=== PATIENT | female | born 1980 | race Caucasian/White ===

== ENCOUNTER 2018-01-08 16:24 | Emergency (ER) | payer OTHER, SELFPAY ==
[2018-01-08 16:45] LABS: Bilirubin Small (Negative); Blood, Urine Small (Negative); Glucose, Urine (Dipstick) Negative (Negative); Leukocyte Negative (Negative); Nitrite Negative (Negative); Protein, Urine (Dipstick) Negative (Neg-Trace); Urobilinogen 0.2 mg/dL (0.2-1.0)
[2018-01-08 16:48] LABS: Clarity Clear (Clear)
[2018-01-08 16:52] LABS: Bacteria/HPF Rare-Few HPF (None Seen); Hyaline Casts/LPF NONE SEEN LPF (0-3 Hyaline); RBC/HPF 0-3 HPF (0-3); Squamous Epithelial 0-3 HPF (0-3); WBC/HPF 0-3 HPF (0-3)
[2018-01-08 17:00] LABS: #Basophils 0.1 thou/uL (0.0-0.2); #Eosinphils 0.1 thou/uL (0.0-0.7); #Lymphocytes 3.6 thou/uL (1.20-3.40); #Monocytes 0.7 thou/uL (0.11-0.59); #Neutrophils 8.2 thou/uL (1.40-6.50); %Basophils 0.9 % (0.0-1.0); %Eosinophils 1.1 % (0.0-10.0); %Lymphocytes 28.5 % (21.0-51.0); %Monocytes 5.4 % (0.0-10.0); %Neutrophils 64.1 % (42.0-75.0); Hemoglobin 11.9 g/dL (12.0-16.0); Mean Corpuscular HGB CONC 32.8 g/dL (32.0-36.0); Mean Corpuscular Hemoglobin 26.5 pg (27.0-31.0); Mean Corpuscular Volume 80.9 fl (81.0-99.0); Mean Platelet Volume 8.1 fL (7.4-10.4); Platelet Count 362 thou/uL (130-400); RBC Distribution Width 12.9 % (11.5-14.5); Red Blood Cell (RBC) Count 4.49 mill/uL (4.20-5.40); White Blood Cell (WBC) Count 12.8 thou/uL (4.8-10.8)
[2018-01-08 17:20] LABS: ALT (SGPT) 20 U/L (8-55); AST (SGOT) 12 U/L (5-34); Albumin 4.4 g/dL (3.5-5.0); Alkaline Phosphatase 78 U/L (40-150); Anion Gap 18 mmol/L (10-20); BUN (Urea Nitrogen) 16 mg/dL (7.0-18.7); Bilirubin, Total 0.4 mg/dL (0.2-1.2); Calc. Creatinine Clearance 0 mL/min (70-130); Calcium 10.1 mg/dL (7.8-10.44); Carbon Dioxide 19 mmol/L (22-29); Chloride 106 mmol/L (98-107); Estimated GFR-MDRD 83; Globulin 3.7 g/dL (2.4-3.5); Glucose 102 mg/dL (70-105); Potassium 3.8 mmol/L (3.5-5.1); Protein, Total 8.1 g/dL (6.0-8.3); Sodium 139 mmol/L (136-145)
[2018-01-08 17:23] LABS: BHCG - Serum Negative (NEGATIVE); Pregs Control Background? CLEAR/WHITE (CLR/WHITE); Pregs Control Bar Appear? YES (CONTROL BAR)
[2018-01-08] MEDS ORDERED: Ketorolac Tromethamine 30 MG/ML VIAL ONE (17:38)
[2018-01-08] MEDS ORDERED: Ondansetron HCl/PF 4 MG/2 ML Vial ONE (17:38)
[2018-01-08 17:45] LABS: Pregnancy Test - Urine (BHCG) Negative (Negative); Pregu Control Background? CLEAR/WHITE (CLR/WHITE); Pregu Control Bar Appear? YES (CONTROL BAR)
--- NOTE | 2018-01-08 19:08 | CT ---
NONCONTRAST CT ABDOMEN AND PELVIS: 01/08/18 HISTORY: Right sided abdominal pain that started this morning. Patient states that the pain is in the region o f the right flank. History of prior kidney stones. FINDINGS: There is moderate right hydronephrosis and hydroureter with an approximately 5 mm calculus seen near the region of the right UVJ. The urinary bladder is completely decompressed and not well evaluated. There are two nonobstructing left renal calculi present, largest measuring 5 mm. No left ureteral adriano culus is present. Kidneys have a lobulated appearance bilaterally which may be related to lobulation. There is a subcentimeter too small to characterize hypodense lesion inferior pole left kidney. Hypodense lesion was seen in this region on prior study in 2015. The liver, spleen, pancreas, bilateral adrenal glands, and uterus demonstrate a grossly normal nonenh anced CT appearance. There are two low density structures seen associated with the left ovary, larges t measuring 3.1 cm and may represent left ovarian cysts but are difficult to further characterize on this nonenhanced CT scan exam. The appendix is not well visualized on this exam, but there are no secondary CT findings to suggest a ppendicitis. IMPRESSION: 1. Partially obstructing right UVJ calculus measuring 5 mm resulting in moderate right hydroneph rosis and hydroureter. 2. Nonobstructing left renal calculi. 3. Hypodense lesions left adnexa which may represent left ovarian cysts but are difficult to marie quately characterize on this exam. Above findings discussed with Dr. Vargas in the Emergency Department on 01/08/18 at 1812 hours. POS: MEGHAN
[2018-01-08] MEDS ORDERED: HYDROcodone/Acetaminophen 5/325 mg Tablet ONE (19:17)
== END 2018-01-08 21:27 | disposition home or self-care (01) ==
LOC: ERS 16:24
DX: N13.2 Hydronephrosis with renal and ureteral calculous obstruction (principal); I10 Essential (primary) hypertension; F32.9 Major depressive disorder, single episode, unspecified; Z87.891 Personal history of nicotine dependence; Z79.899 Other long term (current) drug therapy
CPT/HCPCS: 36415; 74176; 80053; 81003; 81015; 81025; 84703; 85025; 96361; 96374; 96375; J1885; J2405

== ENCOUNTER 2018-04-29 08:47 | Outpatient (CLI) | payer OTHER | END 2018-04-29 08:48 | disposition home or self-care (01) | LOC: BICULT 08:47 | PROVIDERS: ATTEND Family Medicine | DX: N93.9 Abnormal uterine and vaginal bleeding, unspecified (principal); R93.8 Abnormal findings on diagnostic imaging of other specified body structures | CPT/HCPCS: 76856 ==

== ENCOUNTER 2018-05-19 08:07 | Emergency (ER) | payer OTHER ==
[2018-05-19] MEDS ORDERED: HYDROcodone/Acetaminophen 5/325 mg Tablet ONE (08:33)
[2018-05-19 08:57] LABS: Bilirubin Unable to Interpret (Negative); Blood, Urine Unable to Interpret (Negative); Clarity Cloudy (Clear); Glucose, Urine (Dipstick) Unable to Interpret mg/dL (Negative); Leukocyte Unable to Interpret (Negative); Nitrite Unable to Interpret (Negative); Protein, Urine (Dipstick) Unable to Interpret mg/dL (Neg-Trace); Urobilinogen UNABLE TO INTERPRET mg/dL (0.2-1.0)
[2018-05-19 08:58] LABS: Specific Gravity, Urine 1.019 (1.002-1.036)
[2018-05-19 08:59] LABS: Pregnancy Test - Urine (BHCG) Negative (Negative); Pregu Control Background? CLEAR/WHITE (CLR/WHITE); Pregu Control Bar Appear? YES (CONTROL BAR)
[2018-05-19 09:00] LABS: Specific Gravity 1.019 (1.002-1.036)
[2018-05-19 09:10] LABS: pH, Urine 5.1 (5.0-9.0)
[2018-05-19 09:12] LABS: Bacteria/HPF Rare-Few HPF (None Seen); RBC/HPF GREATER THAN 50-TNTC HPF (0-3)
[2018-05-19 09:13] LABS: Hyaline Casts/LPF 0-3 HYALINE CAST LPF (0-3 Hyaline)
[2018-05-19 09:25] LABS: #Basophils 0.1 thou/uL (0.0-0.2); #Eosinphils 0.2 thou/uL (0.0-0.7); #Lymphocytes 4.2 thou/uL (1.20-3.40); #Monocytes 0.6 thou/uL (0.11-0.59); %Basophils 0.8 % (0.0-1.0); %Eosinophils 1.7 % (0.0-10.0); %Lymphocytes 29.6 % (21.0-51.0); %Monocytes 4.5 % (0.0-10.0); %Neutrophils 63.4 % (42.0-75.0); Hemoglobin 9.6 g/dL (12.0-16.0); Mean Corpuscular HGB CONC 32.6 g/dL (32.0-36.0); Mean Corpuscular Hemoglobin 23.9 pg (27.0-31.0); Mean Corpuscular Volume 73.4 fL (78.0-98.0); Mean Platelet Volume 9.2 fL (7.4-10.4); Platelet Count 288 thou/uL (130-400); RBC Distribution Width 17.4 % (11.5-14.5); Red Blood Cell (RBC) Count 4.02 mill/uL (4.20-5.40); White Blood Cell (WBC) Count 14.2 thou/uL (4.8-10.8)
[2018-05-19 09:42] LABS: Hypochromia SLIGHT = 6-15 cells (100X) (0-5/hpf); MDiff Complete? YES; Microcytosis SLIGHT = 6-15 cells (100X) (0-5/hpf); PLT Morphology Comment Appears Adequate; Polychromasia SLIGHT = 2-3 cells (100X) (0-2/hpf)
[2018-05-19] MEDS ORDERED: medroxyPROGESTERone Acetate 5 MG TAB PO SCH (10:00)
--- NOTE | 2018-05-19 10:07 | ULT ---
PELVIC ULTRASOUND: HISTORY: Uterine bleeding. Heavy vaginal bleeding. The patient has been diagnosed with fibroids in the past. COMPARISON: 04/29/2018 TECHNIQUE: Transabdominal, endovaginal imaging of the pelvis is performed. The ovaries are interrogated with Gr ay-scale, color-flow, Doppler imaging, and spectral wave-form analysis. FINDINGS: Redemonstration of a single solid uterine leiomyoma in the anterior uterine fundus, measuring 3.1 x 4 x 3.4 cm. Previously, this fibroid was demonstrated to be 3.1 x 2.4 x 2.9 cm. Additional uterine l eiomyomas are not appreciated. Overall, the uterus measures 5.8 x 9.5 x 6.1 cm. Limited evaluation of the endometrium. The visualized endometrium has a diameter of 0.8 cm in the longitudinal plane an d 2.3 x 1.3 cm in the transverse plane. The right ovary is not appreciated. There is a hypoechoic focus in the left ovary, measuring 2.8 x 4.1 x 3.9 cm, which may represent inte rval development of a slightly complex cyst. Overall, the left ovary measures 3 x 4.2 x 4.8 cm. There is no free fluid. OVARIAN DOPPLER: There is vascular flow to the left ovary. IMPRESSION: 1. Redemonstration of a uterine leiomyoma. 2. Interval development of anechoic flow to the left ovary, likely representing a complex cyst. Fol low-up ultrasound in six to eight weeks is recommended to ensure resolution. POS: MEGHAN
== END 2018-05-19 13:01 | disposition home or self-care (01) ==
LOC: ERS 08:07
DX: N93.8 Other specified abnormal uterine and vaginal bleeding (principal); I10 Essential (primary) hypertension; F32.9 Major depressive disorder, single episode, unspecified; Z87.891 Personal history of nicotine dependence; Z79.899 Other long term (current) drug therapy
CPT/HCPCS: 76856; 81003; 81015; 81025; 85025; 86850; 86900; 86901

== ENCOUNTER 2018-05-26 16:24 | Emergency (ER) | payer OTHER ==
[2018-05-26 16:58] LABS: #Basophils 0.1 thou/uL (0.0-0.2); #Eosinphils 0.1 thou/uL (0.0-0.7); #Lymphocytes 3.6 thou/uL (1.20-3.40); #Monocytes 0.6 thou/uL (0.11-0.59); #Neutrophils 10.6 thou/uL (1.40-6.50); %Basophils 0.9 % (0.0-1.0); %Eosinophils 0.8 % (0.0-10.0); %Lymphocytes 23.8 % (21.0-51.0); %Monocytes 4.2 % (0.0-10.0); %Neutrophils 70.3 % (42.0-75.0); Hemoglobin 8.4 g/dL (12.0-16.0); Mean Corpuscular HGB CONC 32.2 g/dL (32.0-36.0); Mean Corpuscular Hemoglobin 24.3 pg (27.0-31.0); Mean Corpuscular Volume 75.3 fL (78.0-98.0); Platelet Count 469 thou/uL (130-400); RBC Distribution Width 18.3 % (11.5-14.5); Red Blood Cell (RBC) Count 3.44 mill/uL (4.20-5.40); White Blood Cell (WBC) Count 15.1 thou/uL (4.8-10.8)
[2018-05-26 17:19] LABS: Bilirubin Negative (Negative); Blood, Urine Moderate (Negative); Clarity CLOUDY (Clear); Glucose, Urine (Dipstick) Negative (Negative); Leukocyte Negative (Negative); Nitrite Negative (Negative); Protein, Urine (Dipstick) Negative (Neg-Trace); Specific Gravity, Urine 1.005 (1.002-1.036); Urobilinogen 0.2 mg/dL (0.2-1.0)
[2018-05-26 17:23] LABS: Bacteria/HPF None Seen HPF (None Seen); Hyaline Casts/LPF 0-3 HYALINE CAST LPF (0-3 Hyaline); Pathc Cast-AUWi Flag 0.29 (0-2.49); Squamous Epithelial None Seen HPF (0-3); WBC/HPF 0-3 HPF (0-3)
== END 2018-05-26 22:59 | disposition home or self-care (01) ==
LOC: ERS 16:24
DX: N93.9 Abnormal uterine and vaginal bleeding, unspecified (principal); D64.9 Anemia, unspecified; F32.9 Major depressive disorder, single episode, unspecified; Z87.891 Personal history of nicotine dependence; Z79.899 Other long term (current) drug therapy
CPT/HCPCS: 36415; 36430; 81003; 81015; 84702; 85025; 86850; 86900; 86901; 96360; P9016

== ENCOUNTER 2018-06-01 02:58 | Observation (INO) | payer OTHER ==
[2018-06-01] MEDS ORDERED: Morphine 4 MG/ML VIAL ONE ×2 (03:27→05:19)
[2018-06-01 03:45] LABS: #Basophils 0.1 thou/uL (0.0-0.2); #Eosinphils 0.3 thou/uL (0.0-0.7); #Lymphocytes 5.6 thou/uL (1.20-3.40); #Monocytes 0.8 thou/uL (0.11-0.59); #Neutrophils 10.1 thou/uL (1.40-6.50); %Basophils 0.8 % (0.0-1.0); %Eosinophils 1.5 % (0.0-10.0); %Lymphocytes 33.3 % (21.0-51.0); %Monocytes 4.9 % (0.0-10.0); %Neutrophils 59.4 % (42.0-75.0); Hemoglobin 9.2 g/dL (12.0-16.0); Mean Corpuscular HGB CONC 34.6 g/dL (32.0-36.0); Mean Corpuscular Hemoglobin 26.1 pg (27.0-31.0); Mean Corpuscular Volume 75.5 fL (78.0-98.0); Mean Platelet Volume 8.8 fL (7.4-10.4); Platelet Count 383 thou/uL (130-400); RBC Distribution Width 17.8 % (11.5-14.5); Red Blood Cell (RBC) Count 3.52 mill/uL (4.20-5.40); White Blood Cell (WBC) Count 16.9 thou/uL (4.8-10.8)
[2018-06-01 03:49] LABS: BHCG - Serum Negative (NEGATIVE); Pregs Control Background? CLEAR/WHITE (CLR/WHITE); Pregs Control Bar Appear? YES (CONTROL BAR)
[2018-06-01 03:58] LABS: ALT (SGPT) 20 U/L (8-55); AST (SGOT) 13 U/L (5-34); Albumin 4.1 g/dL (3.5-5.0); Alkaline Phosphatase 64 U/L (40-150); Anion Gap 17 mmol/L (10-20); BUN (Urea Nitrogen) 20 mg/dL (7.0-18.7); Bilirubin, Total 0.2 mg/dL (0.2-1.2); Calc. Creatinine Clearance 0 mL/min (70-130); Calcium 9.5 mg/dL (7.8-10.44); Carbon Dioxide 17 mmol/L (22-29); Chloride 107 mmol/L (98-107); Estimated GFR-MDRD 80; Globulin 3.2 g/dL (2.4-3.5); Glucose 127 mg/dL (70-105); Lipase 54 U/L (8-78); Potassium 3.7 mmol/L (3.5-5.1); Protein, Total 7.3 g/dL (6.0-8.3); Sodium 137 mmol/L (136-145)
[2018-06-01 04:29] LABS: Bilirubin Negative (Negative); Blood, Urine Large (Negative); Clarity CLOUDY (Clear); Glucose, Urine (Dipstick) Negative (Negative); Leukocyte Trace (Negative); Nitrite Negative (Negative); Protein, Urine (Dipstick) Trace mg/dL (Neg-Trace); Specific Gravity, Urine 1.025 (1.002-1.036)
[2018-06-01 04:30] LABS: Bacteria/HPF None Seen HPF (None Seen); Hyaline Casts/LPF 0-3 HYALINE CAST LPF (0-3 Hyaline); Pathc Cast-AUWi Flag 0.43 (0-2.49); RBC/HPF GREATER THAN 50-TNTC HPF (0-3); Squamous Epithelial 0-3 HPF (0-3); WBC/HPF 0-3 HPF (0-3)
--- NOTE | 2018-06-01 06:55 | HP ---
DATE OF ADMISSION: 06/01/2018 ADMITTING PHYSICIAN: Nathan Zhao M.D. CHIEF COMPLAINT: Heavy vaginal bleeding, shortness of breath. HISTORY OF PRESENT ILLNESS: Ms. Robles is a 37-year-old white with a reported last normal menstrual period of 04/22/2018 who presents to the ER early this morning complaining of heavy vaginal bleeding x6 pads now with shortness of breath. She has apparently had 3 previous visits to the ER over the last 4-6 weeks. She was known to have bleeding and fibroids and reportedly has an appointment with Dr. Kathy Pham on 06/08/2018. She reports that she had a normal Pap smear last month with Dr. [facility]. PAST OBSTETRICAL HISTORY: Includes 3 spontaneous vaginal deliveries at term. PAST MEDICAL HISTORY: Hypertension. CURRENT MEDICATIONS: Amlodipine 10 mg QD. PAST SURGICAL HISTORY: Tubal ligation. ALLERGIES: No known allergies. SOCIAL HISTORY: She smoked in the past, but not currently. She drinks occasionally. She denies illicit drug use. FAMILY HISTORY: Denies pelvic malignancy. REVIEW OF SYSTEMS: Positive for vaginal bleeding and shortness of breath. She denies nausea, vomiting, fever or chills. PHYSICAL EXAMINATION: Here with me in the ER. VITAL SIGNS: Blood pressure 120/68, pulse is 105, O2 saturation on room air is 98%. GENERAL: She is pale appearing, but in no acute distress. LUNGS: Chest is clear to auscultation. CARDIOVASCULAR: Regular rate and rhythm. ABDOMEN: Soft and nontender. There is no guarding or rebound. PELVIC: There is dried blood on the inside of her thighs. Speculum exam shows a moderate amount of blood in the vagina. On bimanual exam, there are no palpated lesions of the cervix. The uterus appears approximately 10-12 weeks in size. LABORATORY DATA: White count 16.9, hemoglobin 9.2, hematocrit 26.6, platelets 383,000. Serum test is negative. Urine shows a specific gravity of 1.025 with trace ketones, blood is seen. Ultrasound is repeated tonight and is consistent with an earlier visit that shows a 10 cm uterus with a 3 cm fundal fibroid. ASSESSMENT AND PLAN: 1. Menorrhagia. 2. Anemia. 3. Fibroid uterus PLAN: One unit of packed red cells has been ordered by the ER physician. I will admit her for 23-hour observation to watch her bleeding. She will be started on Lysteda 1300 mg t.i.d. along with Provera 20 mg b.i.d.. An H&H has been ordered for noon today. She will be watched closely. ANAM
--- NOTE | 2018-06-01 08:14 | ULT ---
PRELIMINARY REPORT/[facility]/EMERGENTY AFTER-HOURS PROCEDURE US Pelvis Complete, Transabdominal US Pelvis, Transvaginal US Duplex Arterial/Venous of the Pelvis, Complete EXAM DATE/TIME: Exam ordered 06/01/2018 3:46 AM CLINICAL HISTORY: 37 years old, female; Pain and signs and symptoms; Menstruation abnormalities; Excessive menstruation ; With irregular cycle; Pelvic pain; Patient HX: Llq pain with heavy vaginal bleeding since 05/15/18 TECHNIQUE: Real-time transabdominal and transvaginal pelvic ultrasound (complete) with image documentation. Transvaginal imaging was used for better evaluation of the endometrium and adnexa. Real-time duplex u ltrasound scan of the arterial and venous flow of the pelvis with color Doppler flow and spectral wav eform analysis. COMPARISON: No relevant prior studies available. FINDINGS: Uterus/cervix: The uterus measures 8.8 x 5.6 x 5.7 cm. Endometrial thickness measures 5 mm. There are benign cervical Nabothian cysts. There is a large heterogeneous uterine fibroid near the fundus josue uring 4.1 x 3.4 x 3.9 cm. Right ovary: RIGHT ovary measures 3.3 x 3.0 x 2.6 cm. Normal arterial and venous waveforms. No torsio n. Left ovary: LEFT ovary measures 6.0 x 4.4 x 3.2 cm and contains a 3.9 x 3.2 x 3.2 cm septated cyst. Normal arterial and venous waveforms. No torsion. Free fluid: No free fluid. IMPRESSION: 1. Fibroid uterus. 2. Complex probably hemorrhagic LEFT ovarian cyst. Ultrasound followup in 2 menstrual cycles may be performed if clinically warranted. 3. No ultrasound evidence of ovarian torsion. Thank you for allowing us to participate in the care of your patient. Dictated and Authenticated by: Rafy Martinez MD 06/01/2018 5:30 AM Central Time ([place] & [place]) PELVIC ULTRASOUND: History: Left sided pelvic pain. Vaginal bleeding. Comparison: 05-19-18 Technique: Transabdominal and endovaginal imaging of the pelvis performed. Ovaries were interrogated with grayscale, color flow, doppler imaging and spectral waveform analysis. FINDINGS: This report is in agreement with the preliminary report by [facility]. Re-demonstration of a uterine leiomyo ma currently measuring 4.1 x 3.4 x 3.9 cm. Previously, the uterine leiomyoma measured 4.0 x 3.4 x 3.1 cm. There is septated cyst in the left ovary measuring 3.9 x 3.2 x 3.2 cm. Previously, this slightly complex measured 2.8 x 4.1 x 3.9 cm. IMPRESSION: No significant interval change. There is vascular flow to both ovaries. Follow up ultrasound in 6-8 w eeks is recommended to assess left ovary. POS: MEGHAN
[2018-06-01] MEDS ORDERED: medroxyPROGESTERone Acetate 5 MG TAB PO SCH (09:00)
[2018-06-01] MEDS: Tranexamic Acid 650 MG TAB PO SCH ×3 (09:17→22:30)
[2018-06-01] MEDS: Sodium Chloride 0.9% 1,000 ML IV SCH ×2 (09:20→15:23)
[2018-06-01] MEDS ORDERED: Estrogens, Conjugated 25 mg Vial SLOW IVP SCH (09:45)
[2018-06-01] MEDS ORDERED: Acetaminophen 1,000 MG in Premix Bag 1 BAG IVPB SCH (10:00)
--- NOTE | 2018-06-01 10:40 | PRG ---
DATE OF SERVICE: 06/01/2018 HISTORY OF PRESENT ILLNESS: The patient is a 37-year-old female who has had a several week history o f heavy vaginal bleeding with multiple presentations to the emergency room and is now being transfuse d on this admission. In reviewing the ultrasound and the patient's history, I have made some changes to her medications. I have cut back on her medroxyprogesterone to 10 mg twice a day. I have added IV estrogen as her lining is 5 mm and have restart her home medications, Norvasc 10 mg daily and 200 mg of Wellbutrin twice a day. In addition, I have added ibuprofen 800 mg 3 times a day as needed for pain and 1 dose of IV Tylenol as the patient is experiencing a lot of cramping at this time. In reviewing her history, the patient has been on medroxyprogesterone of various dosages multiple matthias es over the last several weeks with little effect and given the thinness of her lining, adding estrog en I believe will be beneficial for her. The patient does report she was a former smoker, but has no t been smoking since October. She also reports that she has had a 30 pound weight gain since quittin g which may have some influence on her bleeding problems at this time. The patient's pad counts will be monitored through the day. I will be contacting Dr. Kathy Pham, who is the PROJECT PRODUCT MANAGER she has be en attempting to establish care with to see if she is interested in managing the patient in house as the patient may benefit from a D&C and endometrial ablation during this hospitalization.
[2018-06-01] MEDS ORDERED: Sterile Water 10 ML ONE (10:50)
[2018-06-01] MEDS: Ibuprofen 800 MG TAB PO PRN (11:01)
[2018-06-01] MEDS: buPROPion HCl 100 MG TAB PO SCH (22:30)
[2018-06-01] MEDS: Estradiol 1 MG TAB PO SCH (22:30)
[2018-06-01] MEDS: medroxyPROGESTERone Acetate 5 MG TAB PO SCH (22:30)
[2018-06-02] MEDS: Ibuprofen 800 MG TAB PO PRN (01:27)
[2018-06-02] MEDS: Sodium Chloride 0.9% 1,000 ML IV SCH (01:28)
[2018-06-02] MEDS: Estradiol 1 MG TAB PO SCH (08:13)
[2018-06-02] MEDS: buPROPion HCl 100 MG TAB PO SCH (08:13)
[2018-06-02] MEDS: Tranexamic Acid 650 MG TAB PO SCH (08:14)
[2018-06-02 08:15] VITALS: BP 118/71
[2018-06-02] MEDS: medroxyPROGESTERone Acetate 5 MG TAB PO SCH (08:15)
[2018-06-02] MEDS ORDERED: Amlodipine 10 MG TAB PO SCH (09:00)
--- NOTE | 2018-06-02 09:05 | DIS ---
DATE OF ADMISSION: 06/01/2018 DATE OF DISCHARGE: 06/02/2018 ADMITTING DIAGNOSES: Symptomatic anemia and menorrhagia. DISCHARGE DIAGNOSES: Symptomatic anemia and menorrhagia. PROCEDURE: Blood transfusion of 1 unit packed red blood cells. CONSULTATIONS: None. HOSPITAL COURSE: The patient is a 37-year-old female who has now presented 3 times to the emergency room for vaginal bleeding. She has been transfused twice. CARE MANAGEMENT ASSISTANT was consulted from the ER and the patient was admitted to the hospital for observation. On arrival, the patient was given Lysteda and medroxyprogesterone. On review of her ultrasound, I chose to reduce her medroxyprogesterone and add IV estrogen given the thinness of her lining. Since about 6:00 yesterday afternoon the patient has h ad no bleeding. I have discussed the case with Dr. Kathy Pham, who is the primary CARE MANAGEMENT ASSISTANT she has been attempting to establish care with has an appointment next Thursday. Given the patient's resolut ion of symptoms, I will be discharging the patient home and the patient will follow up with Dr. Pham as scheduled next Thursday. She will be discharged. PHYSICAL EXAMINATION: VITAL SIGNS: At time of discharge, blood pressure is 118/71, pulse of 91, temperature 98.2. GENERAL: She appears to be in no acute distress. She is alert and oriented, cooperative and pleasan t to interact with. She will be discharged to home with estradiol 2 mg to be taken twice a day for the next 3 days and th en once a day until she is seen by Dr. Pham. She also has instructions to take her medroxyprogester one 10 mg a day.
[2018-06-02 11:34] VITALS: TEMP 99
== END 2018-06-02 10:05 | disposition home or self-care (01) ==
LOC: ERS 02:58 → 3SE 08:56
PROVIDERS: ADMIT Obstetrics & Gynecology; ATTEND Obstetrics & Gynecology
DX: N92.0 Excessive and frequent menstruation with regular cycle (principal); D64.9 Anemia, unspecified; I10 Essential (primary) hypertension; Z79.899 Other long term (current) drug therapy
CPT/HCPCS: 36415; 36430; 76856; 80053; 81003; 81015; 83690; 84703; 85025; 86850; 86900; 86901; 96361; 96374; 96375; 96376; A4216; G0378; J0131; J1410; J2270; P9016

== ENCOUNTER 2018-06-16 03:55 | Inpatient (IN) | payer OTHER ==
[2018-06-16] MEDS ORDERED: Ketorolac Tromethamine 30 MG/ML VIAL ONE (04:45)
[2018-06-16 05:17] LABS: #Basophils 0.2 thou/uL (0.0-0.2); #Eosinphils 0.2 thou/uL (0.0-0.7); #Lymphocytes 4.8 thou/uL (1.20-3.40); #Monocytes 0.9 thou/uL (0.11-0.59); #Neutrophils 8.9 thou/uL (1.40-6.50); %Eosinophils 1.6 % (0.0-10.0); %Lymphocytes 32.2 % (21.0-51.0); %Monocytes 5.7 % (0.0-10.0); %Neutrophils 59.5 % (42.0-75.0); Hemoglobin 6.5 g/dL (12.0-16.0); Mean Corpuscular HGB CONC 33.5 g/dL (32.0-36.0); Mean Corpuscular Hemoglobin 25.2 pg (27.0-31.0); Mean Corpuscular Volume 75.1 fL (78.0-98.0); Mean Platelet Volume 9.5 fL (7.4-10.4); Platelet Count 295 thou/uL (130-400); RBC Distribution Width 18.1 % (11.5-14.5); Red Blood Cell (RBC) Count 2.59 mill/uL (4.20-5.40)
[2018-06-16 05:19] LABS: PTT 27.3 SEC (22.9-36.1); Prothrombin Time 13.1 SEC (12.0-14.7)
[2018-06-16 05:36] LABS: ALT (SGPT) 14 U/L (8-55); AST (SGOT) 15 U/L (5-34); Albumin 3.6 g/dL (3.5-5.0); Alkaline Phosphatase 52 U/L (40-150); Anion Gap 14 mmol/L (10-20); BUN (Urea Nitrogen) 18 mg/dL (7.0-18.7); Bilirubin, Total 0.2 mg/dL (0.2-1.2); Calc. Creatinine Clearance 0 mL/min (70-130); Calcium 8.6 mg/dL (7.8-10.44); Carbon Dioxide 19 mmol/L (22-29); Chloride 108 mmol/L (98-107); Estimated GFR-MDRD 77; Globulin 3.2 g/dL (2.4-3.5); Glucose 111 mg/dL (70-105); Potassium 3.7 mmol/L (3.5-5.1); Protein, Total 6.8 g/dL (6.0-8.3); Sodium 137 mmol/L (136-145)
[2018-06-16] MEDS: Sodium Chloride 0.9% 1,000 ML IV SCH ×3 (09:27→22:02)
[2018-06-16] MEDS: Famotidine/PF 20 mg/2ml Vial SLOW IVP SCH ×2 (09:34→20:25)
[2018-06-16 09:46] VITALS: BMI 30.2
[2018-06-16] MEDS: Acetaminophen 325 MG TAB PO PRN ×2 (10:24→18:30)
--- NOTE | 2018-06-16 11:40 | HP ---
DATE OF SERVICE: 06/16/2018. PRIMARY STAIN REMOVER: Dr. Kathy Pham. CHIEF COMPLAINT: Symptomatic anemia and vaginal bleeding. HISTORY OF PRESENT ILLNESS: The patient is a 37-year-old female who has been admitted multiple times in the last several months for blood due to significant vaginal bleeding and symptomatic anemia. The patient has been in the process of having surgery scheduled with her primary physician, Dr. Kathy Pham. The patient reports that since her last admission, she had no bleeding for several days and started having bleeding off and on until this last weekend when it became very heavy again. The patient reports that she began having symptoms of dizziness, weakness, fatigue, lightheadedness, occasional headache and after having heavy bleeding this morning again, the patient chose to come to the emergency room. She was noted to have a hemoglobin of 6.5, hematocrit of 19.4, platelets of 295,000. The patient was admitted for blood and to watch her vaginal bleeding. Patient says since admission to the hospital or since presenting to the emergency room, she has only needed to change 2 pads over the course of 6 hours. She reports at home, she has been taking since her visit with Dr. Pham, control pills and had tried doubling up on them over the weekend as instructed with out success. The patient has had no other complaints since or problems since our last encounter on a previous admission. I have spoken to Dr. Pham by phone who has requested the patient to be placed n.p.o. with the potential of going to surgery today. PAST MEDICAL HISTORY: Hypertension, depression, anemia. PAST SURGICAL HISTORY: Tubal ligation. OBSTETRIC HISTORY: Three spontaneous vaginal deliveries. ALLERGIES: No known drug allergies. SOCIAL HISTORY: Currently not a tobacco user. Drinks occasionally. Denies drug use. MEDICATIONS: The patient is on amlodipine 10 mg daily, Wellbutrin 200 mg twice a day and control pills 2 tablets a day. PHYSICAL EXAMINATION: VITAL SIGNS: Currently, blood pressure is 125/79, temperature 99.0, pulse 91, respiratory rate of 20, satting 98% on room air. GENERAL: She appears to be in no acute distress. She is alert and oriented, cooperative and pleasant to interact with. HEAD: Normocephalic, atraumatic. LUNGS: Clear to auscultation bilaterally. HEART: Regular rate and rhythm. ABDOMEN: Soft. LABORATORY DATA: White count of 15, hemoglobin of 6.5, hematocrit 19.4, platelets 295,000. Pelvic ultrasound on 06/01/2018 demonstrates a uterus of 8.8 x 5.6 x 5.7 cm with a 4 x 4 cm fundal fibroid and cervical nabothian cysts. ASSESSMENT AND PLAN: The patient is a 37-year-old female with multiple admissions for heavy vaginal bleeding and requiring blood products. Today, she represents with symptomatic anemia and is being transfused 2 units of packed red blood cells. Her recently established STAIN REMOVER has requested the patient to be placed n.p.o. and will be taking over management with the intention of taking her to surgery as soon as possible. I have placed the patient on n.p.o. She has had her home medications and will be awaiting Dr. Pham's word on surgery. The patient currently is not bleeding heavily and is otherwise stable. ELLIS HOSPITALFabio
[2018-06-16] MEDS: Ibuprofen 800 MG TAB PO PRN (18:17)
[2018-06-16] MEDS: buPROPion HCl 100 MG TAB PO SCH (20:25)
[2018-06-16] MEDS ORDERED: Melatonin 3 MG TAB PO PRN (22:50)
[2018-06-17] MEDS: Ibuprofen 800 MG TAB PO PRN ×2 (01:29→09:47)
[2018-06-17] MEDS: Acetaminophen 325 MG TAB PO PRN ×2 (01:46→09:47)
[2018-06-17] MEDS: Amlodipine 10 MG TAB PO SCH (09:07)
[2018-06-17] MEDS: Sodium Chloride 0.9% 1,000 ML IV SCH ×3 (09:07→22:38)
[2018-06-17] MEDS: Famotidine/PF 20 mg/2ml Vial SLOW IVP SCH ×2 (09:08→23:42)
[2018-06-17] MEDS: buPROPion HCl 100 MG TAB PO SCH ×2 (09:08→23:41)
--- NOTE | 2018-06-17 12:38 | PQF ---
CLINICAL DOCUMENTATION IMPROVEMENT CLARIFICATION FORM: ICD-10 Updated PLEASE DO AN ADDENDUM TO THE PROGRESS NOTE WITH ANY DOCUMENTATION UPDATES OR ADDITIONS AND CARRY THROUGH TO DC SUMMARY. THANK YOU. DATE: 06/17/18 ATTN: DR. TRAORE Please exercise your independent, professional judgment in responding to the clarification form. Clinical indicators are provided on the bottom of this form for your review Please check appropriate box(s): [ ] Acute blood loss anemia [ ] Post-op anemia related to acute blood loss [ x ] Anemia: [ ] Aplastic [ ] Nutritional [ ] Drug induced (specify) __ [ ] Hemolytic [ ] Hereditary [ ] Acquired [ ] Autoimmune [ ] Non-autoimmune [ ] Enzyme disorder [ ] Chronic Anemia: [ x ] Blood loss [ ] Hemolytic [ ] Simple [ ] Due to Vitamin B12 Deficiency [ ] Other [ ] Anemia of Chronic Disease (please specify) [ ] Anemia due to Neoplasm: [ ] Primary [ ] Secondary [ ] Anemia due to (please choose): [ ] Due to Chemotherapy [ ] Due to Radiotherapy [ ] Due to Immunotherapy [x ] Other diagnosis _abnormal uterine bleeding, suspected fibroid uterus ____ [ ] Unable to determine In addition, please specify: Present on Admission (POA): [x ] Yes [ ] No [ ] Unable to determine For continuity of documentation, please document condition throughout progress notes and discharge summary. Thank You. CLINICAL INDICATORS - SIGNS / SYMPTOMS / LABS H&P 06/16: "SYMPTOMATIC ANEMIA" HGN 06/16: 6.5 RISKS: VAGINAL BLEEDING TREATMENT: SERIAL LABS BLOOD TRANSFUSIONS (This form is maintained as a part of the permanent medical record) 2014 [employer] All Rights Reserved [email or web address] Office: [phone] ANAM
[2018-06-17] MEDS ORDERED: Lidocaine 1% PF 5 ML VIAL ONE (14:34)
[2018-06-17] MEDS ORDERED: Glycopyrrolate 0.2 MG/ML 5 ML SYRINGE ONE (14:34)
[2018-06-17] MEDS ORDERED: PHENYLEPHRINE-NS 100 MCG/ML 10 ML SYRINGE ONE ×2 (14:34→17:17)
[2018-06-17] MEDS ORDERED: ePHEDrine/0.9% NaCl/PF SYRINGE 50 mg/10 ml ONE (14:34)
[2018-06-17] MEDS ORDERED: PROPOFOL 200 MG/20 ML VIAL ONE (14:34)
[2018-06-17] MEDS ORDERED: Dexamethasone 20 MG/5 ML VIAL ONE (14:34)
[2018-06-17] MEDS ORDERED: Fentanyl 100 MCG/2 ML VIAL ONE ×3 (15:26→20:50)
[2018-06-17] MEDS ORDERED: Bupivacaine HCl 0.5%/Epinephrine 1:200,000/PF 30 ml Vial ONE (16:14)
[2018-06-17] MEDS ORDERED: Fentanyl 250 MCG/5 ML VIAL ONE (16:16)
[2018-06-17] MEDS ORDERED: Midazolam HCl 2 mg/2 ml Vial ONE (16:25)
[2018-06-17] MEDS ORDERED: Calcium Chloride 1 GM/10 ML Abboject SYRINGE ONE (17:20)
[2018-06-17] MEDS ORDERED: Thrombin 5000 UNITS/5 ML VIAL ONE (17:20)
[2018-06-17] MEDS ORDERED: Ketorolac Tromethamine 30 MG/ML VIAL ONE (20:24)
[2018-06-17] MEDS ORDERED: Ondansetron HCl/PF 4 MG/2 ML Vial IVP PRN ×2 (20:25→20:26)
[2018-06-17] MEDS ORDERED: Zolpidem Tartrate 5 MG TAB PO PRN (20:25)
[2018-06-17] MEDS ORDERED: HYDROcodone/Acetaminophen 5/325 mg Tablet PO PRN (20:25)
[2018-06-17] MEDS ORDERED: Simethicone Chewable 80 MG TAB PO PRN (20:25)
[2018-06-17] MEDS ORDERED: diphenhydrAMINE 25 MG CAP PO PRN (20:25)
[2018-06-17] MEDS ORDERED: Promethazine HCl 25 MG/ML VIAL IM PRN ×2 (20:25→20:26)
[2018-06-17] MEDS ORDERED: Ketorolac Tromethamine 30 MG/ML VIAL IVP PRN (20:26)
[2018-06-17] MEDS ORDERED: Promethazine HCl 25 MG/ML VIAL SLOW IVP PRN (20:26)
[2018-06-17] MEDS: HYDROcodone/Acetaminophen 5/325 mg Tablet PO PRN (22:02)
[2018-06-18] MEDS: Ketorolac Tromethamine 30 MG/ML VIAL IVP SCH ×3 (01:08→14:34)
[2018-06-18] MEDS: Sodium Chloride 0.9% 1,000 ML IV SCH ×2 (01:08→14:52)
[2018-06-18] MEDS: HYDROcodone/Acetaminophen 5/325 mg Tablet PO PRN ×2 (03:52→10:58)
[2018-06-18 06:11] LABS: Hemoglobin 8.2 g/dL (12.0-16.0); Mean Corpuscular HGB CONC 34.1 g/dL (32.0-36.0); Mean Corpuscular Hemoglobin 27.2 pg (27.0-31.0); Mean Corpuscular Volume 79.9 fL (78.0-98.0); Mean Platelet Volume 8.6 fL (7.4-10.4); Platelet Count 255 thou/uL (130-400); RBC Distribution Width 18.3 % (11.5-14.5); Red Blood Cell (RBC) Count 2.99 mill/uL (4.20-5.40); White Blood Cell (WBC) Count 17.1 thou/uL (4.8-10.8)
[2018-06-18] MEDS: Famotidine/PF 20 mg/2ml Vial SLOW IVP SCH (07:51)
[2018-06-18] MEDS: Amlodipine 10 MG TAB PO SCH (10:57)
[2018-06-18] MEDS: buPROPion HCl 100 MG TAB PO SCH (10:57)
[2018-06-18 12:04] VITALS: TEMP 98.4
[2018-06-18] MEDS ORDERED: HYDROcodone/Acetaminophen 5/325 mg Tablet PO PRN (14:38)
[2018-06-18 16:38] VITALS: BP 111/62
== END 2018-06-18 18:44 | disposition home or self-care (01) | DRG 742 ==
LOC: ERS 03:55 → 3SE 06:04
PROVIDERS: ADMIT Obstetrics & Gynecology; ATTEND Obstetrics & Gynecology
PROC: 0UT94ZZ Resection of Uterus, Percutaneous Endoscopic Approach (ICD-10-PCS; principal; 2018-06-17)
PROC: 0UT74ZZ Resection of Bilateral Fallopian Tubes, Percutaneous Endoscopic Approach (ICD-10-PCS; 2018-06-17)
PROC: 0DNW4ZZ Release Peritoneum, Percutaneous Endoscopic Approach (ICD-10-PCS; 2018-06-17)
PROC: 8E0W4CZ Robotic Assisted Procedure of Trunk Region, Percutaneous Endoscopic Approach (ICD-10-PCS; 2018-06-17)
PROC: 0UT14ZZ Resection of Left Ovary, Percutaneous Endoscopic Approach (ICD-10-PCS; 2018-06-17)
DX: D25.9 Leiomyoma of uterus, unspecified (principal); D62 Acute posthemorrhagic anemia
CPT/HCPCS: 36415; 36430; 80053; 85025; 85027; 85610; 85730; 86850; 86900; 86901; 88307; 96374; A4216; J0131; J0670; J1100; J1885; J2001; J2250; J2405; J2704; J3010; P9016; S0028

== ENCOUNTER 2020-08-30 00:07 | Emergency (ER) | payer OTHER, SELFPAY ==
[2020-08-30 00:47] LABS: #Basophils 0.1 thou/uL (0.0-0.2); #Eosinphils 0.1 thou/uL (0.0-0.7); #Lymphocytes 3.3 thou/uL (1.20-3.40); #Monocytes 0.6 thou/uL (0.11-0.59); #Neutrophils 12.2 thou/uL (1.40-6.50); %Basophils 0.7 % (0.0-1.0); %Eosinophils 0.5 % (0.0-10.0); %Lymphocytes 20.4 % (21.0-51.0); %Monocytes 3.8 % (0.0-10.0); %Neutrophils 74.6 % (42.0-75.0); Hemoglobin 14.6 g/dL (12.0-16.0); Mean Corpuscular HGB CONC 33.9 g/dL (32.0-36.0); Mean Corpuscular Hemoglobin 29.9 pg (27.0-31.0); Mean Corpuscular Volume 88.1 fL (78.0-98.0); Platelet Count 263 thou/uL (130-400); RBC Distribution Width 11.7 % (11.5-14.5); White Blood Cell (WBC) Count 16.3 thou/uL (4.8-10.8)
[2020-08-30] MEDS ORDERED: diphenhydrAMINE 50 MG/ML VIAL ONE (00:55)
[2020-08-30] MEDS ORDERED: Metoclopramide HCl 10 MG/2 ML VIAL ONE (00:55)
[2020-08-30] MEDS ORDERED: Metoclopramide 10 MG/10 ML UDCUP ONE (00:55)
[2020-08-30 01:06] LABS: ALT (SGPT) 22 U/L (8-55); AST (SGOT) 20 U/L (5-34); Albumin 4.4 g/dL (3.5-5.0); Alkaline Phosphatase 74 U/L (40-110); Anion Gap 16 mmol/L (10-20); BUN (Urea Nitrogen) 22 mg/dL (7.0-18.7); Bilirubin, Total 0.7 mg/dL (0.2-1.2); Calc. Creatinine Clearance 0 mL/min (70-130); Calcium 9.5 mg/dL (7.8-10.44); Carbon Dioxide 21 mmol/L (22-29); Chloride 105 mmol/L (98-107); Estimated GFR-MDRD 85; Globulin 3.8 g/dL (2.4-3.5); Glucose 143 mg/dL (70-105); Protein, Total 8.2 g/dL (6.0-8.3); Sodium 138 mmol/L (136-145)
[2020-08-30] MEDS ORDERED: Acetaminophen 500 MG TAB ONE (02:02)
[2020-08-30] MEDS ORDERED: Ketorolac Tromethamine 30 MG/ML VIAL ONE (02:02)
== END 2020-08-30 03:31 | disposition home or self-care (01) ==
LOC: ERS 00:07
DX: K52.9 Noninfective gastroenteritis and colitis, unspecified (principal); G43.909 Migraine, unspecified, not intractable, without status migrainosus; I10 Essential (primary) hypertension; D64.9 Anemia, unspecified; F32.9 Major depressive disorder, single episode, unspecified; Z87.891 Personal history of nicotine dependence
CPT/HCPCS: 80053; 85025; 96365; 96366; 96375; J1200; J1885; J2765

== ENCOUNTER 2020-12-26 17:03 | Emergency (ER) | payer SELFPAY | END 2020-12-26 20:16 | disposition left against medical advice (07) | LOC: ERS 17:03 | DX: Z53.21 Procedure and treatment not carried out due to patient leaving prior to being seen by health care provider (principal) ==

== ENCOUNTER 2021-01-17 15:01 | Inpatient (IN) | payer OTHER, SELFPAY ==
[2021-01-17 15:46] LABS: #Basophils 0.1 thou/uL (0.0-0.2); #Eosinphils 0.1 thou/uL (0.0-0.7); #Lymphocytes 3.8 thou/uL (1.20-3.40); #Monocytes 0.5 thou/uL (0.11-0.59); %Basophils 0.9 % (0.0-1.0); %Eosinophils 1.1 % (0.0-10.0); %Lymphocytes 30.1 % (21.0-51.0); %Monocytes 3.8 % (0.0-10.0); %Neutrophils 64.1 % (42.0-75.0); Hemoglobin 13.7 g/dL (12.0-16.0); Mean Corpuscular HGB CONC 33.8 g/dL (32.0-36.0); Mean Corpuscular Hemoglobin 29.4 pg (27.0-31.0); Mean Corpuscular Volume 86.8 fL (78.0-98.0); Mean Platelet Volume 8.3 fL (7.4-10.4); Platelet Count 285 thou/uL (130-400); RBC Distribution Width 11.3 % (11.5-14.5); Red Blood Cell (RBC) Count 4.68 mill/uL (4.20-5.40); White Blood Cell (WBC) Count 12.5 thou/uL (4.8-10.8)
[2021-01-17] MEDS ORDERED: Aspirin Chewable 81 MG TAB ONE (15:54)
[2021-01-17 16:08] LABS: ALT (SGPT) 19 U/L (8-55); AST (SGOT) 18 U/L (5-34); Albumin 4.5 g/dL (3.5-5.0); Alkaline Phosphatase 78 U/L (40-110); Anion Gap 13 mmol/L (10-20); BUN (Urea Nitrogen) 16 mg/dL (7.0-18.7); Bilirubin, Total 0.8 mg/dL (0.2-1.2); Calc. Creatinine Clearance 0 mL/min (70-130); Calcium 9.2 mg/dL (7.8-10.44); Carbon Dioxide 26 mmol/L (22-29); Chloride 103 mmol/L (98-107); Globulin 3.4 g/dL (2.4-3.5); Glucose 107 mg/dL (70-105); Potassium 3.5 mmol/L (3.5-5.1); Protein, Total 7.9 g/dL (6.0-8.3); Sodium 138 mmol/L (136-145)
[2021-01-17] MEDS ORDERED: hydrALAZINE 20 MG/ML VIAL SLOW IVP PRN (17:20)
[2021-01-17 18:03] LABS: Hemoglobin A1c 5.5 % (4.0-6.0)
[2021-01-17] MEDS ORDERED: Acetaminophen 500 MG TAB ONE (18:35)
[2021-01-17 19:05] LABS: Bacteria/HPF None Seen HPF (None Seen); Bilirubin Negative (Negative); Blood, Urine 1+ (Negative); Clarity Clear (Clear); Glucose, Urine (Dipstick) Normal (Negative); Ketone, Urine Trace mg/dL (Negative); Leukocyte Negative Leu/uL (Negative); Nitrite Negative (Negative); Protein, Urine (Dipstick) 10 mg/dL (Neg-Trace); Specific Gravity, Urine 1.017 (1.002-1.036); Urobilinogen Normal mg/dL (Less than 2); WBC/HPF 0-3 HPF (0-3)
[2021-01-17 20:48] VITALS: BMI 31.4
[2021-01-17] MEDS ORDERED: Atorvastatin Calcium 40 MG TAB PO SCH (21:00)
[2021-01-18 02:11] LABS: SARS-CoV-2 PCR by NAA Not Detected (NotDetected)
[2021-01-18 05:54] LABS: Cardiac Risk 7.5 (Less than 4.5)
[2021-01-18 06:13] LABS: Syphilis Antibody Nonreactive (Nonreactive); Syphilis Antibody Index 0.02 S/CO (<1.00 Non-Reactive)
[2021-01-18] MEDS ORDERED: Aspirin 81 mg Enteric Coated Tablet PO SCH (09:00)
[2021-01-18] MEDS ORDERED: Lorazepam 2 MG/ML VIAL IVPB SCH (09:45)
[2021-01-18] MEDS ORDERED: Enoxaparin Sodium 40 MG/0.4 ML SYRINGE SC SCH (10:00)
[2021-01-18] MEDS ORDERED: Acetaminophen 325 MG TAB PO PRN (12:05)
[2021-01-18 12:21] LABS: Prothrombin Time 13.7 sec (12.0-14.7)
[2021-01-18 15:30] VITALS: BP 132/86; TEMP 98
[2021-01-18 15:49] LABS: D-Dimer Test Less than 0.27 *mcg/mL (0.27-0.43)
[2021-01-18 18:52] LABS: Cardiolipin IgA Ab 1.8 APL-U/mL (<14 Negative); Cardiolipin IgG Ab 0.5 GPL-U/mL (<10 Negative); Cardiolipin IgM Ab 1.7 MPL-U/mL (<10 Negative); EliA APS New Method **** NEW METHOD ****
[2021-01-19] MEDS ORDERED: Enoxaparin Sodium 40 MG/0.4 ML SYRINGE SC SCH (09:00)
[2021-01-21 12:21] LABS: Protein C Activity 113 % (78-152)
[2021-01-21 12:23] LABS: Factor VIII Test 179.1 % ACTIVE (56-157)
[2021-01-21 14:24] LABS: HEX PHOS LA Tube 1 44.7 SEC; HEX PHOS LA Tube 2 43.2 SEC; Hexagonal Phospholipid Neut 1.5 SEC (0-8.0)
[2021-02-06 18:37] LABS: Activated Protein C Resistance 2.7 ratio (.)
== END 2021-01-18 19:10 | disposition home or self-care (01) | DRG 69 ==
LOC: ERS 15:01 → OBSVTOIN 16:44 → ERHOLD 16:44 → 2SE 20:20
PROVIDERS: ADMIT Internal Medicine; ATTEND Hospitalist
DX: G45.9 Transient cerebral ischemic attack, unspecified (principal); I10 Essential (primary) hypertension; R00.2 Palpitations; E66.9 Obesity, unspecified; D72.829 Elevated white blood cell count, unspecified; E78.5 Hyperlipidemia, unspecified; Z20.822 Contact with and (suspected) exposure to COVID-19; Z88.8 Allergy status to other drugs, medicaments and biological substances; Z90.710 Acquired absence of both cervix and uterus; Z68.31 Body mass index [BMI] 31.0-31.9, adult; Z82.3 Family history of stroke
CPT/HCPCS: 36415; 70450; 70551; 80053; 80061; 81003; 81015; 83036; 83090; 83735; 84443; 85025; 85240; 85300; 85303; 85305; 85307; 85379; 85598; 85610; 85730; 86147; 86780; 87077; 87086; 87635; 93005; 93306; 93880; G0378; J1650; J2060; U0003; U0005

== ENCOUNTER 2021-07-14 12:27 | Emergency (ER) | payer SELFPAY ==
[2021-07-14] MEDS ORDERED: Pantoprazole 40 MG VIAL ONE (13:09)
[2021-07-14] MEDS ORDERED: Ondansetron PF 4 MG/2 ML Vial ONE ×2 (13:09→13:33)
[2021-07-14 13:41] LABS: #Basophils 0.1 thou/uL (0.0-0.2); #Eosinphils 0.2 thou/uL (0.0-0.7); #Lymphocytes 3.5 thou/uL (1.20-3.40); #Monocytes 0.4 thou/uL (0.11-0.59); #Neutrophils 9.8 thou/uL (1.40-6.50); %Basophils 0.9 % (0.0-1.0); %Eosinophils 1.3 % (0.0-10.0); %Lymphocytes 24.8 % (21.0-51.0); Hemoglobin 14.8 g/dL (12.0-16.0); Mean Corpuscular HGB CONC 33.9 g/dL (32.0-36.0); Mean Corpuscular Hemoglobin 29.5 pg (27.0-31.0); Mean Corpuscular Volume 87.1 fL (78.0-98.0); Mean Platelet Volume 8.8 fL (7.4-10.4); Platelet Count 280 thou/uL (130-400); RBC Distribution Width 11.1 % (11.5-14.5); Red Blood Cell (RBC) Count 5.02 mill/uL (4.20-5.40); White Blood Cell (WBC) Count 13.9 thou/uL (4.8-10.8)
[2021-07-14 13:47] LABS: Albumin 4.3 g/dL (3.5-5.0)
[2021-07-14 13:49] LABS: Calcium 9.6 mg/dL (7.8-10.44); Chloride 105 mmol/L (98-107); Potassium 3.9 mmol/L (3.5-5.1); Sodium 137 mmol/L (136-145)
[2021-07-14 13:50] LABS: Globulin 3.9 g/dL (2.4-3.5); Glucose 104 mg/dL (70-105); Protein, Total 8.2 g/dL (6.0-8.3)
[2021-07-14 13:51] LABS: Anion Gap 12 mmol/L (10-20); Carbon Dioxide 24 mmol/L (22-29)
[2021-07-14 13:52] LABS: Bilirubin, Total 0.3 mg/dL (0.2-1.2)
[2021-07-14 13:53] LABS: Alkaline Phosphatase 66 U/L (40-110); Calc. Creatinine Clearance 0 mL/min (70-130)
[2021-07-14 13:54] LABS: BUN (Urea Nitrogen) 14 mg/dL (7.0-18.7)
[2021-07-14 13:55] LABS: AST (SGOT) 15 U/L (5-34)
[2021-07-14 13:56] LABS: ALT (SGPT) 17 U/L (8-55); Lipase 35 U/L (8-78)
== END 2021-07-14 15:30 | disposition home or self-care (01) ==
LOC: ERS 12:27
DX: R10.13 Epigastric pain (principal); R11.2 Nausea with vomiting, unspecified; R19.7 Diarrhea, unspecified; I10 Essential (primary) hypertension; Z79.899 Other long term (current) drug therapy
CPT/HCPCS: 80053; 82274; 83630; 83690; 85025; 87045; 87046; 87324; 87328; 87329; 87427; 87449; 96374; 96375; C9113; J2405

== ENCOUNTER 2021-07-30 14:13 | Emergency (ER) | payer SELFPAY ==
[2021-07-30] MEDS ORDERED: Ketorolac Tromethamine 30 MG/ML VIAL ONE (14:47)
== END 2021-07-30 15:41 | disposition home or self-care (01) ==
LOC: ERS 14:13
DX: M25.562 Pain in left knee (principal); Z79.899 Other long term (current) drug therapy; I10 Essential (primary) hypertension
CPT/HCPCS: 96372; J1885

== ENCOUNTER 2021-09-04 15:30 | Emergency (ER) | payer SELFPAY ==
[2021-09-04 16:03] LABS: #Basophils 0.1 thou/uL (0.0-0.2); #Eosinphils 0.1 thou/uL (0.0-0.7); #Lymphocytes 4.6 thou/uL (1.20-3.40); #Monocytes 0.7 thou/uL (0.11-0.59); %Basophils 0.9 % (0.0-1.0); %Eosinophils 0.8 % (0.0-10.0); %Lymphocytes 33.8 % (21.0-51.0); %Monocytes 4.9 % (0.0-10.0); %Neutrophils 59.6 % (42.0-75.0); Mean Corpuscular Hemoglobin 30.3 pg (27.0-31.0); Mean Corpuscular Volume 86.5 fL (78.0-98.0); Mean Platelet Volume 8.5 fL (7.4-10.4); Platelet Count 277 thou/uL (130-400); RBC Distribution Width 11.3 % (11.5-14.5); Red Blood Cell (RBC) Count 4.61 mill/uL (4.20-5.40); White Blood Cell (WBC) Count 13.5 thou/uL (4.8-10.8)
[2021-09-04 16:25] LABS: ALT (SGPT) 29 U/L (8-55); AST (SGOT) 21 U/L (5-34); Albumin 4.4 g/dL (3.5-5.0); Alkaline Phosphatase 79 U/L (40-110); Anion Gap 17 mmol/L (10-20); BUN (Urea Nitrogen) 13 mg/dL (7.0-18.7); Bilirubin, Total 0.7 mg/dL (0.2-1.2); Calc. Creatinine Clearance 0 mL/min (70-130); Calcium 10.1 mg/dL (7.8-10.44); Carbon Dioxide 22 mmol/L (22-29); Chloride 103 mmol/L (98-107); Globulin 3.2 g/dL (2.4-3.5); Glucose 103 mg/dL (70-105); Potassium 3.7 mmol/L (3.5-5.1); Protein, Total 7.6 g/dL (6.0-8.3); Sodium 138 mmol/L (136-145)
[2021-09-04] MEDS ORDERED: Aspirin Chewable 81 MG TAB ONE ×2 (17:13)
[2021-09-04] MEDS ORDERED: Prochlorperazine 10 MG/2 ML VIAL ONE (17:15)
== END 2021-09-04 18:21 | disposition home or self-care (01) ==
LOC: ERS 15:30
DX: R42 Dizziness and giddiness (principal); R20.2 Paresthesia of skin; I10 Essential (primary) hypertension; E78.00 Pure hypercholesterolemia, unspecified; E78.5 Hyperlipidemia, unspecified; Z79.899 Other long term (current) drug therapy
CPT/HCPCS: 70450; 80053; 85025; 93005; 96374; J0780

== ENCOUNTER 2021-10-28 00:56 | Emergency (ER) | payer SELFPAY ==
[2021-10-28] MEDS ORDERED: Bupivacaine 0.5% 10 ML VIAL ONE (02:09)
== END 2021-10-28 02:59 | disposition home or self-care (01) ==
LOC: ERS 00:56
DX: K08.89 Other specified disorders of teeth and supporting structures (principal); E78.5 Hyperlipidemia, unspecified; E78.00 Pure hypercholesterolemia, unspecified; I10 Essential (primary) hypertension
CPT/HCPCS: 64400; J3490

== ENCOUNTER 2021-12-04 17:35 | Emergency (ER) | payer SELFPAY ==
[2021-12-04 23:28] LABS: SARS-CoV-2 PCR by NAA Not Detected (NotDetected)
== END 2021-12-04 17:59 | disposition home or self-care (01) ==
LOC: ERS 17:35
DX: R05.9 Cough, unspecified (principal); I10 Essential (primary) hypertension; E78.5 Hyperlipidemia, unspecified; E78.00 Pure hypercholesterolemia, unspecified; Z20.822 Contact with and (suspected) exposure to COVID-19; Z79.899 Other long term (current) drug therapy
CPT/HCPCS: 99283; U0003; U0005

== ENCOUNTER 2022-05-25 08:07 | Emergency (ER) | payer SELFPAY ==
[2022-05-25] MEDS ORDERED: Bupivacaine 0.25% 10 ML VIAL ONE (08:28)
[2022-05-25] MEDS ORDERED: Ketorolac Tromethamine 30 MG/ML VIAL ONE (08:30)
== END 2022-05-25 09:33 | disposition short-term general hospital (02) ==
LOC: ERS 08:07
DX: K04.7 Periapical abscess without sinus (principal); K02.9 Dental caries, unspecified; E78.5 Hyperlipidemia, unspecified; E78.00 Pure hypercholesterolemia, unspecified; I10 Essential (primary) hypertension; Z79.899 Other long term (current) drug therapy
CPT/HCPCS: 64400; 96372; J1885; S0020